=== PATIENT | female | born 1980 | race Caucasian/White ===

== ENCOUNTER 2018-08-14 00:47 | Emergency (ER) | payer MEDICAID ==
--- NOTE | 2018-08-14 01:02 | ED Physician Chart ---
ED Chief Complaint/HPI - Patient Information Date Seen:: 08/14/18 Time Seen:: 00:58 Chief Complaint:: Left hip pain and left knee pain History of Present Illness:: 37 yo female with history of left hip bursitis diagnosed by MRI, had pain radiating from hip to the left leg today after walking a lot today. Patient could not tolerate the pain and presented to ER. ED Review of Systems - Review of Systems General/Constitutional: No fever Skin: No rash Head: Headache Eyes: No pain ENT: No nasal drainage Neck: No neck pain Cardio Vascular: No chest pain Pulmonary: No SOB GI: No nausea, No vomiting Musculoskeletal: No bone or joint pain Neurological: Headache ED Past Medical History - Past Medical History Past Medical History: HTN, Dyslipidemia, Other (scitica) Social History: Non Smoker, Alcohol, No Drug Use Surgical History: other (abdominal surgery) Family Medical History - Family Member Mother History Unknown: Yes ED Physical Exam - Physical Examination General/Constitutional: Awake, Alert Head: Atraumatic Eyes: PERRL Skin: No skin lesions ENMT: Nasal exam nl Neck: No nuchal rigidity Respiratory: No Wheeze/Rhonchi/Rales Cardio Vascular: RRR, No murmur, gallop, rubs, NL S1 S2 GI: No tenderness/rebounding/guarding Other Extremities comments:: Left EHL weakness, left straight leg raising test positive Neuro/Psych: Alert/oriented ED Assessment - Assessment General Assessment: Left lumbar radiculopathy Left hip pain Assessment/Comments:: Urine hCG test: negative Toradol 60mg IM ED Septic Shock - . Is Septic Shock (SBP<90, OR Lactate>4 mmol\L) present?: No ED Reassessment (Disposition) - Reassessment Reassessment Condition:: Improved - Aftercare/Follow up Instructions Notes:: Follow up PCP for physical therapy. Return to ER if symptoms worsen. - Patient Disposition Discharge/Transfer:: Home
== END 2018-08-14 02:00 | disposition home or self-care (01) ==
LOC: ER 00:47
DX: M54.16 Radiculopathy, lumbar region (principal); M25.552 Pain in left hip; M25.562 Pain in left knee; I10 Essential (primary) hypertension; E78.5 Hyperlipidemia, unspecified; Z91.041 Radiographic dye allergy status; Z88.5 Allergy status to narcotic agent
CPT/HCPCS: 99283; 96372; 81025; J1885; Z7502